=== PATIENT | female | born 1985 | race Caucasian/White ===

== ENCOUNTER 2019-11-30 21:41 | Emergency (ER) | payer OTHER ==
--- NOTE | 2019-11-30 23:06 | ED ---
Bite Injury/Animal - HPI Summary HPI Summary: 34-year-old female with multiple antibiotic allergies presents to the emergency department today after being bitten in the left pointer finger yesterday by her cat. Patient states she was trying to give her Medications for a car ride which caused the cat to bit the patients finger. Patient states her cat has otherwise been acting normally. Patient states her cat is up-to-date with her immunizations. Patient states she does not recall when her last tetanus shot was. Patient is concerned as her left pointer finger is beginning to look red and swollen and is a 6 out of 10 pain. Patient denies other symptoms such as fever, chest pain, abdominal pain. Patient states despite occurred in [facility]. - History of Current Complaint Chief Complaint: EDAnimalBite Stated Complaint: ANIMAL BITE/SWOLLEN PER PT Time Seen by Provider: 11/30/19 23:04 Hx Obtained From: Patient Hx Last Menstrual Period: 08/14/16 Onset of Injury: Happened days ago Type of Bite: Pet Hx of Bite: Provoked by: - giving cat PO medicine Has Animal Been Immunized?: Yes Severity Initially: Mild Severity Currently: None Pain Intensity: 2 Pain Scale Used: 0-10 Numeric Character: Puncture Associated Signs And Symptoms: Positive: Erythema, Swelling Animal Available for Observation: Yes - Allergies/Home Medications Allergies/Adverse Reactions: Allergies Allergy/AdvReac Type Severity Reaction Status Date / Time amoxicillin [From Augmentin] Allergy Unknown Verified 11/30/19 22:02 Reaction Details bacitracin Allergy Unknown Verified 11/30/19 22:02 [From Neosporin Reaction ([id number])] Details budesonide Allergy Unknown Verified 11/30/19 22:02 Reaction Details clavulanic acid Allergy Unknown Verified 11/30/19 22:02 [From Augmentin] Reaction Details mupirocin [From Bactroban] Allergy Unknown Verified 11/30/19 22:02 Reaction Details neomycin Allergy Unknown Verified 11/30/19 22:02 [From Neosporin Reaction ([id number])] Details Penicillins Allergy Unknown Verified 11/30/19 22:02 Reaction Details polymyxin B Allergy Unknown Verified 11/30/19 22:02 [From Neosporin Reaction ([id number])] Details thimerosal Allergy Unknown Verified 11/30/19 22:02 Reaction Details dermabond Allergy Unknown Uncoded 11/30/19 22:02 Reaction Details potassium dichromate Allergy Unknown Uncoded 11/30/19 22:02 Reaction Details PMH/Surg Hx/FS Hx/Imm Hx Endocrine/Hematology History: Denies: Hx Anticoagulant Therapy, Hx Diabetes, Hx Systemic Lupus Erythematosus, Hx Thyroid Disease Cardiovascular History: Denies: Hx Congestive Heart Failure, Hx Hypertension, Hx Pacemaker/ICD Respiratory History: Denies: Hx Asthma, Hx Chronic Obstructive Pulmonary Disease (COPD) GI History: Denies: Other GI Disorders History: Denies: Hx Dialysis, Hx Renal Disease Musculoskeletal History: Denies: Hx Rheumatoid Arthritis Neurological History: Denies: Hx Dementia, Hx Seizures Psychiatric History: Denies: Hx Substance Abuse - Cancer History Hx Chemotherapy: No Infectious Disease History: No Infectious Disease History: Denies: Hx Hepatitis, Hx Human Immunodeficiency Virus (HIV), Traveled Outside the [place] in Last 30 Days - Social History Alcohol Use: None Substance Use Type: Reports: None Smoking Status (MU): Never Smoked Tobacco Review of Systems Constitutional: Negative Eyes: Negative ENT: Negative Cardiovascular: Negative Respiratory: Negative Gastrointestinal: Negative Genitourinary: Negative Positive: Edema Positive: Rash Neurological: Negative Psychological: Normal All Other Systems Reviewed And Are Negative: Yes Physical Exam - Summary Physical Exam Summary: Patient has full range of motion of the left pointer finger. There is a small puncture wound consistent with the patient's story of the Right noted to the left pointer finger. No bleeding. The finger is mildly erythematous with mild edema. Findings are suggestive of early infection. Triage Information Reviewed: Yes Vital Signs On Initial Exam: Initial Vitals Temp Pulse Resp BP Pulse Ox 98.2 F 80 16 182/121 99 11/30/19 21:53 11/30/19 21:53 11/30/19 21:53 11/30/19 21:53 11/30/19 21:53 Vital Signs Reviewed: Yes Appearance: Positive: Well-Appearing, No Pain Distress, Well-Nourished Skin: Positive: Warm, Skin Color Reflects Adequate Perfusion Eyes: Positive: EOMI, DUC ENT: Positive: Hearing grossly normal Respiratory/Lung Sounds: Positive: Clear to Auscultation, Breath Sounds Present Cardiovascular: Positive: RRR, S1, S2 Abdomen Description: Positive: No Organomegaly. Negative: Distended, Guarding Bowel Sounds: Positive: Present Musculoskeletal: Positive: Strength/ROM Intact Neurological: Positive: Sensory/Motor Intact, Alert, Oriented to Person Place, Time, Normal Gait, Facial Symmetry, Speech Normal Psychiatric: Positive: Normal, Affect/Mood Appropriate AVPU Assessment: Alert Procedures - Sedation Patient Received Moderate/Deep Sedation with Procedure: No Diagnostics - Vital Signs Vital Signs Temp Pulse Resp BP Pulse Ox 11/30/19 21:53 98.2 F 80 16 182/121 99 - Laboratory Lab Statement: Any lab studies that have been ordered have been reviewed, and results considered in the medical decision making process. Bite Injury Course/Dx - Course Course Of Treatment: PT evaluated for cat bite. PT examined, vitals stable. Evidence of early infection near site of bite. Pt given updated Tdap. pt given 1 dose of doxycycline in the ED and a prescription for doxycycline 100mg BID x 7 days. Doxy chosen due to pt allergy to PCN. Pt to f/u with PCP. PT pet is UTD with imms, and is avaliable for observation. - Diagnoses Differential Diagnosis/HQI/PQRI: Positive: Cellulitis, Puncture, Rabies Exposure , Superficial Infection, Tenosynovitis Provider Diagnosis: Cat bite of finger Discharge ED - Sign-Out/Discharge Documenting (check all that apply): Patient Departure - Discharge Plan Condition: Stable Disposition: HOME Prescriptions: DOXYcycline CAP(*) [DOXYcycline 100MG CAP(*)] 100 mg PO BID 7 Days #14 cap Patient Education Materials: Animal Bite (ED) Referrals: [facility] [Outside] - 3 Days No Primary Care Phys,NOPCP [Primary Care Provider] - Additional Instructions: You were seen in the emergency department today due to a cat bite. Tetanus immunization was updated during your stay. Please take doxycycline 100 mg twice daily for 7 days for alleviation of your symptoms. Please follow-up with your primary care provider or care connections provider in 3 days for further evaluation and management. You may take ibuprofen 600 mg every 6 hours as needed for pain. Please take antibiotic with food to reduce nausea. Please return to the emergency department immediately if you develop any new or worsening symptoms. - Billing Disposition and Condition Condition: STABLE Disposition: Home
[2019-11-30] MEDS ORDERED: Tetan/Diph/Pertus SYR(Tdap)* 0.5 ML SYR(BOOSTRIX) use SYR contains LATEX IM ONE (23:30)
[2019-11-30] MEDS ORDERED: DOXYcycline CAP(*) 100 MG PO ONE (23:38)
[2019-12-01 00:19] VITALS: BP 170/101
== END 2019-12-01 00:17 | disposition home or self-care (01) ==
LOC: ED 21:41
DX: S61.251A Open bite of left index finger without damage to nail, initial encounter (principal); Z23 Encounter for immunization; W55.01XA Bitten by cat, initial encounter; Y92.009 Unspecified place in unspecified non-institutional (private) residence as the place of occurrence of the external cause; Z88.1 Allergy status to other antibiotic agents; Z88.0 Allergy status to penicillin; Z88.8 Allergy status to other drugs, medicaments and biological substances
CPT/HCPCS: 90471; 90715; 99283; A9270-GY

== ENCOUNTER 2019-12-03 10:28 | Emergency (ER) | payer OTHER ==
[2019-12-03 11:09] VITALS: BP 136/89
--- NOTE | 2019-12-03 11:26 | UC ---
Bite Injury/Animal HPI - HPI Summary HPI Summary: 34-year-old woman comes in with chief complaint of a cat bite to the left index finger. 5 days ago patient was bitten the left index finger by her own cat as she was feeding it. The cat is immunized for rabies and the bite occurred in [facility]. The cat is in possession of the patient. On November 30, 2019 patient was seen in the [place] emergency department with an infected left index finger from the cat bite. Patient has multiple allergies to antibiotics and reports being very sensitive to most medications and she prefers to be on the minimal amount of medications. She was started on doxycycline 100 mg twice a day for 7 days in the emergency department on November 30, 2019. Since that time the signs of infection have improved with decreased swelling decreased redness getting decreased range of motion of the finger. No fevers or chills. The doxycycline does make her nauseous. - History of Current Complaint Chief Complaint: UCBiteInjury Stated Complaint: RECHECK OF CAT BITE Time Seen by Provider: 12/03/19 11:11 Hx Last Menstrual Period: 11/08/19 Pain Intensity: 0 - Allergies/Home Medications Allergies/Adverse Reactions: Allergies Allergy/AdvReac Type Severity Reaction Status Date / Time amoxicillin [From Augmentin] Allergy Unknown Verified 12/03/19 11:01 Reaction Details bacitracin Allergy Unknown Verified 12/03/19 11:01 [From Neosporin Reaction ([id number])] Details budesonide Allergy Unknown Verified 12/03/19 11:01 Reaction Details clavulanic acid Allergy Unknown Verified 12/03/19 11:01 [From Augmentin] Reaction Details mupirocin [From Bactroban] Allergy Unknown Verified 12/03/19 11:01 Reaction Details neomycin Allergy Unknown Verified 12/03/19 11:01 [From Neosporin Reaction ([id number])] Details ondansetron [From Zofran] Allergy Nausea And Verified 12/03/19 11:10 Vomiting Penicillins Allergy Unknown Verified 12/03/19 11:01 Reaction Details polymyxin B Allergy Unknown Verified 12/03/19 11:01 [From Neosporin Reaction ([id number])] Details thimerosal Allergy Unknown Verified 12/03/19 11:01 Reaction Details dermabond Allergy Unknown Uncoded 12/03/19 11:01 Reaction Details medical tape Allergy Rash Uncoded 12/03/19 11:01 narcotics Allergy Nausea And Uncoded 12/03/19 11:10 Vomiting potassium dichromate Allergy Unknown Uncoded 12/03/19 11:01 Reaction Details Home Medications: Home Medications Beclomethasone Dipropionate [Qnasl] 1 spray INH DAILY 12/03/19 [History Confirmed 12/03/19] Diclofenac 1% GEL (NF) [Voltaren 1% GEL (NF)] 1 applic TOPICAL DAILY 12/03/19 [ History Confirmed 12/03/19] Montelukast Sodium TAB* [Singulair 10 MG TAB*] 1 tab PO DAILY 12/03/19 [History Confirmed 12/03/19] Triamcinolone 0.1% OINT(NF) [Kenolog 0.1% OINT(NF)] 1 applic TOPICAL WEEKLY PRN 12/03/19 [History Confirmed 12/03/19] PMH/Surg Hx/FS Hx/Imm Hx Previously Healthy: Yes Other History Of: Negative For: Anticoagulant Therapy - Surgical History Surgical History: None Surgery Procedure, Year, and Place: femoral osteotomy - Family History Known Family History: Positive: Non-Contributory - Social History Alcohol Use: None Substance Use Type: None Smoking Status (MU): Never Smoked Tobacco - Immunization History Most Recent Tetanus Shot: 2019 Review of Systems All Other Systems Reviewed And Are Negative: Yes Constitutional: Positive: Negative Skin: Positive: Other - SEE HPI Eyes: Positive: Negative ENT: Positive: Negative Respiratory: Positive: Negative Cardiovascular: Positive: Negative Gastrointestinal: Positive: Negative Motor: Positive: Other - SEE HPI Neurovascular: Positive: Negative Musculoskeletal: Positive: Other: - SEE HPI Neurological: Positive: Negative Psychological: Positive: Negative Is Patient Immunocompromised?: No Physical Exam Triage Information Reviewed: Yes Appearance: Well-Appearing, No Pain Distress, Well-Nourished Vital Signs: Initial Vital Signs Temp 98.7 F 12/03/19 10:56 Pulse 84 12/03/19 10:56 Resp 18 12/03/19 10:56 BP 136/89 12/03/19 10:56 Pulse Ox 99 12/03/19 10:56 Vital Signs Reviewed: Yes Eye Exam: Normal Eyes: Positive: Conjunctiva Clear Neck: Positive: Supple Respiratory: Positive: No respiratory distress Musculoskeletal: Positive: Other: - Left index finger has a puncture wound on the thenar aspect of the palmar index finger over the DIP. Is no erythema no drainage no streaking. Finger has full range of motion and normal sensation. Neurological: Positive: Alert Psychological: Positive: Age Appropriate Behavior Skin: Positive: Other - Is no erythema no drainage no streaking. Finger has full range of motion and normal sensation. Bite Injury Course/Dx - Course Course Of Treatment: On examination today there is no evidence of infection. The patient showed me photographs from earlier which did have a swollen finger and erythema so there is been a great deal of improvement. Patient is allergic to penicillin so she cannot be on Augmentin. I discussed with her dual treatment with doxycycline and either Flagyl or clindamycin. Patient reports that she is so sensitive to different medications she would prefer not to have the second antibiotic. Patient is a family and she is moving from [facility] to [facility] at this time. She reports that she will be at [place] tomorrow and that she'll be able to be evaluated medically there within the next day or 2 if needed. Because the patient is improving and declines the second antibiotic will continue with the doxycycline and have close follow-up if she is not completely improved or worsening. - Differential Dx/Diagnosis Provider Diagnosis: Infected cat bite of finger Discharge ED - Sign-Out/Discharge Documenting (check all that apply): Patient Departure All imaging exams completed and their final reports reviewed: No Studies - Discharge Plan Condition: Stable Disposition: HOME Patient Education Materials: Animal Bite (ED) Referrals: Little Huffman MD [Medical Doctor] - Additional Instructions: FOLLOW UP WITH THE ORTHOPEDIC HAND SPECIALIST OR YOUR DOCTOR IF NOT COMPLETELY IMPROVED OR WORSE. GET REEVALUATED SOONER IF NOT IMPROVED OR WORSE; SIGNS OF INFECTION OR ANY QUESTIONS OR CONCERNS. - Billing Disposition and Condition Condition: STABLE Disposition: Home
== END 2019-12-03 11:32 | disposition home or self-care (01) ==
LOC: UCEAST 10:28
DX: S61.251A Open bite of left index finger without damage to nail, initial encounter (principal); L08.9 Local infection of the skin and subcutaneous tissue, unspecified; Z88.0 Allergy status to penicillin; Z88.8 Allergy status to other drugs, medicaments and biological substances; Z88.5 Allergy status to narcotic agent; Z91.09 Other allergy status, other than to drugs and biological substances; Z88.1 Allergy status to other antibiotic agents; W55.01XA Bitten by cat, initial encounter; Y92.9 Unspecified place or not applicable
CPT/HCPCS: 99211; G0463